=== PATIENT | female | born 1985 | race African-American/Black ===

== ENCOUNTER → 2020-09-09 10:19 | Outpatient (CLI) | payer BC, SELFPAY ==
--- NOTE | ~2020-09-09 | US_ITS ---
EXAMINATION: US OB >= 14 weeks Fetus DATE: 09/09/2020 10:57 INDICATION: Second trimester anatomic survey TECHNIQUE: Real-time ultrasound of the pelvis was performed. COMPARISON: None. FINDINGS: There is a single living fetus in breech presentation. The placenta is anterior. heart rate is 152 beats per minute (bpm). cardiac activity and movement are noted. The amniotic fluid index is subjectively normal. The following anatomy was identified as normal: 4 chamber heart 3 vessel cord cord insertion kidneys urinary bladder stomach spine diaphragm ventricles cisterna magna cerebellum The following biometric data were obtained: Biparietal diameter (BPD): 5.4 cm; head circumference (HC): 20.7 cm; abdominal circumference (AC): 17 .8 cm; femur length (FL): 3.6 cm. These measurements are concordant. Estimated weight is 491 g +/- 73 g, which correlates with the 51st percentile when 01/12/2021 is used as estimated date of delivery. As single measurements, these parameters are each equal to the following estimated gestational ages w ith ranges of +/- 2 standard deviations: BPD: 22 weeks 5 days ( 21 weeks 0 days - 24 weeks 3 days). HC: 22 weeks 6 days ( 21 weeks 2 days - 24 weeks 2 days). AC: 22 weeks 5 days ( 20 weeks 4 days - 24 weeks 5 days). FL: 21 weeks 4 days ( 19 weeks 6 days - 23 weeks 3 days). estimated gestational age based solely on measurements from this exam is 22 weeks 3 days +/- 1 weeks 4 days. IMPRESSION: 1. Single living fetus in breech presentation. 2. Estimated weight is 491 g +/- 73 g, which correlates with the 51st percentile when 01/12/2021 is used as estimated date of delivery. Reviewed, dictated and finalized at location A. IMPRESSION: 1. Single living fetus in breech presentation. 2. Estimated weight is 491 g +/- 73 g, which correlates with the 51st per centile when 01/12/2021 is used as estimated date of delivery.
== END ==
PROVIDERS: Visit Provider Obstetrics & Gynecology
DX: Z36.9 Encounter for antenatal screening, unspecified (principal)
CPT/HCPCS: 76805

== ENCOUNTER 2021-01-12 04:32 | Inpatient (IN) | payer BC, SELFPAY ==
[2021-01-12] VITALS (19 sets, daily range): BP systolic 96–121; BP diastolic 53–86; PULSE 66–108; RESP 16–18; TEMP 36.4–37.1; O2SAT 100
--- NOTE | 2021-01-12 05:16 | LDADM ---
This patient, Terrence Bedoya, was admitted to Labor/Delivery/Recovery 103 on 01/12/21 at 04:32. Plans for labor, pain management and were discussed with patient. Patient/family oriented to hospital policies and general routines including ID bracelet, bed and alarms, visiting hours, pain management, procedures, bathroom and other care routines, personal items, smoking policy, room service/diet and guest tray routines, infant security routines, and visiting hours. Patient/Family are encouraged to report perceived risks to care and to ask questions if they do not understand what they are told or what they should do. See [facility] for further documentation.
--- NOTE | 2021-01-12 05:35 | PC.NURSE ---
PT REFUSES BLOOD PRODUCTS BUT IS NOT LIZZIE RUIZ, PT HAS ALSO HAD 4 PRIOR VAGINAL DELIVERIES. THESE MAKE PT HIGH HEMORRHAGE RISK
[2021-01-12 06:02] LABS: Basophils Percent Auto 0.4 % (0.2-1.2); Eosinophils Absolute Auto 0.1 K/mm3 (0-0.3); Eosinophils Percent Auto 0.9 % (0-4.4); Hematocrit 31.4 % (37.0-47.0); Hemoglobin 9.6 g/dL (12.0-15.0); Immature Granulocyte Absolute 0.11 K/mm3 (0.00-0.031); Immature Granulocyte Percent A 1.4 % (0-0.5); Lymphocytes Absolute Auto 2.44 K/mm3 (0.9-3.2); Lymphocytes Percent Auto 31.9 % (18.3-44.2); Mean Corpuscular HGB Conc 30.6 g/dl (32-36); Mean Corpuscular Volume 88.5 fl (80-100); Mean Platelet Volume 12.9 fl (7.4-10.4); Monocytes Absolute Auto 0.6 K/mm3 (0.1-0.6); Monocytes Percent Auto 8.2 % (2.6-8.5); Neutrophils Absolute Auto 4.4 K/mm3 (1.3-6.7); Neutrophils Percent Auto 57.2 % (45.5-73.1); Platelet Count Result 153 k/mm3 (150-375); Red Blood Count 3.55 M/mm3 (4.2-5.4); Red Cell Distribution Width 17.6 % (11.5-14.5); White Blood Count 7.7 K/mm3 (4.5-10.0)
--- NOTE | 2021-01-12 07:14 | WPDOBADMIT ---
Obstetrics - Admit Note Admission Note: record reviewed. No pertinent additions to the history and/or any subsequent changes in the physical findings that are not consistent with the expected course of the were found. Additions to the history and/or subsequent changes in the physical findings follow. None.Here in labor. Now /-1 AROM with clear fluid. FHTs reactive.
[2021-01-12] MEDS: OXYTOCIN 30 UNITS/NS 500 ML 30 UNITS/500 ML BAG 999 UNITS IV CONT (07:36)
--- NOTE | 2021-01-12 07:42 | PM.OBPRVD ---
OB - Delivery Note Procedure Delivery date: 01/12/21 Procedure: Intrapartal events: None Induction method: none Delivery monitor: external FHT and external uterine Route of delivery: Episiotomy description: None Specimen: No Quantitative Blood Loss (ml): 25 Anesthesia type: None Disposition: floor [place] Baby Date of : 01/12/21 Weeks of gestation at delivery: 39 Infant gender: Male presentation: vertex position: Right Occiput Anterior Placenta delivery description: Spontaneous cord vessel description: 3 Vessels score one minute: 9 score five minutes: 9
--- NOTE | 2021-01-12 07:43 | P.DS_ITS ---
DS: Admitting Diagnosis Discharge Date 01/14/21 Admitting Diagnosis labor at 39 4/7 DS: Discharge Diagnosis Discharge Diagnosis (1) (normal spontaneous vaginal delivery): Code(s): O80 - Encounter for full-term uncomplicated delivery Status: Acute OB - DS: Summary OB Procedures : Ultrasound OB Procedures Intrapartum: Spontaneous Vag Delivery OB Procedures: : None Peripartum Data Delivery Method: Natural Vaginal Laceration Description: None complications: none Status at Discharge Functional status at discharge: independent ambulation Overall status at discharge: patient is progressing back to baseline Time Spent with Patient Time attestation: Total time spent providing and/or coordinating discharge services: DS: Data Data Completed and Pending Labs on day of discharge: Labs from last 24 hours 01/12/21 01/12/21 05:04 05:04 WBC 7.7 RBC 3.55 L Hgb 9.6 L Hct 31.4 L MCV 88.5 MCH 27.0 MCHC 30.6 L RDW 17.6 H Plt Count 153 MPV 12.9 H Immature Gran % (Auto) 1.4 H Neut % (Auto) 57.2 Lymph % (Auto) 31.9 [place] % (Auto) 8.2 Eos % (Auto) 0.9 Baso % (Auto) 0.4 Lymph # (Auto) 2.44 [place] # (Auto) 0.6 Eos # (Auto) 0.1 Baso # (Auto) 0.0 Abs Immat Gran (auto) 0.11 H Absolute Neuts (auto) 4.4 Absolute Nucleated RBC 0.0 Nucleated RBC % 0.0 RPR Pending Discharge Plan Discharge Attending physician on discharge: Ailyn Merchant Discharging Clinician: Ailyn Merchant Anticipated Discharge Date/Time: 01/14/21 07:44 Patient Disposition: Home, Self-Care Activity: may shower and pelvic rest Diet: regular Patient Instructions: Antibiotic Form Stand Alone Forms: General Discharge Information Follow-up/Referrals: Anjum Langley MD [Physician] - 6 Weeks Discharge Medications: New polysaccharide iron complex 150 mg iron Capsule 150 mg PO BIDWM Qty: 60 RF: 1 KPN Tablet 1 tablet PO DAILY Qty: 30 RF: 12 No Action No Home Medications RF: 0 Date of admission: 01/12/21 04:32 Primary Care Provider: Pipo Coley Admitting Provider: Anjum Langley Attending physician on admission: Anjum Langley Condition: Stable Health Concerns: Declines control Reviewed recommendation to wait at least 9 months for another
[2021-01-12 08:01] LABS: Rapid Plasma Reagin Non-Reactive (NonReactive)
[2021-01-12] MEDS: OXYTOCIN 30 UNITS/NS 500 ML 30 UNITS/500 ML BAG 125 UNITS IV CONT (08:02)
[2021-01-12] MEDS: IBUPROFEN 600 MG TABLET PO ×3 (08:41→22:30)
--- NOTE | 2021-01-12 12:00 | PC.NURSE ---
Consult with pt., mother reports infant eagerly latched last feeding without difficulties or discomfort. Mother denies need for assist with latching. Requested mother call out for observation of feeding per policy.
[2021-01-12] MEDS: POLYSACCHARIDE IRON COMPLEX 150 MG CAPSULE PO (17:00)
[2021-01-12] MEDS: DOCUSATE SODIUM 100 MG CAPSULE PO (17:00)
[2021-01-13 04:15] VITALS: BP 105/67; PULSE 79; RESP 16; TEMP 36.9; O2SAT 100
[2021-01-13 05:23] LABS: Hematocrit 30.1 % (37.0-47.0); Hemoglobin 9.3 g/dL (12.0-15.0)
--- NOTE | 2021-01-13 07:31 | PM.OBPNVD ---
OB - PN: Subj Subjective Date/time seen: 01/13/21 07:31 Patient comments: no complaints and pain well controlled baby status: doing well OB - PN: Obj Data Labs CBC & Chem 7: 01/13/21 04:12 Labs: Laboratory Results - last 24 hr 01/12/21 01/12/21 01/13/21 05:04 05:04 04:12 Hgb 9.3 L Hct 30.1 L RPR Non-reactive Blood Type B Positive Antibody Screen Negative OB - PN A/P Plan day: 1 Plan: routine care Time Spent With Patient Time: Total time spent is greater than 50% in coordination of care (as documented) at patient's floor/unit and/or counseling patient: Exam : Bimanual exam- vagina & uterus: other (Uterus firm, nt @U)
[2021-01-13] MEDS: IBUPROFEN 600 MG TABLET PO ×2 (08:31→17:31)
[2021-01-13] MEDS: POLYSACCHARIDE IRON COMPLEX 150 MG CAPSULE PO ×2 (08:32→17:30)
[2021-01-13] MEDS: DOCUSATE SODIUM 100 MG CAPSULE PO ×2 (08:32→17:30)
[2021-01-13] MEDS: MULTIVIT/MIN/PREN/FOL AC/IRON TABLET 1 TAB PO (08:32)
[2021-01-13 08:45] VITALS: BP 104/65; PULSE 71; RESP 18; TEMP 36.8; O2SAT 100
[2021-01-13 20:40] VITALS: BP 111/62; PULSE 66; RESP 18; TEMP 36.7; O2SAT 100
--- NOTE | 2021-01-14 07:16 | PM.OBPNVD ---
OB - PN: Subj Subjective Date/time seen: 01/14/21 07:16 Patient comments: no complaints and pain well controlled baby status: doing well OB - PN: Obj Data Labs CBC & Chem 7: 01/13/21 04:12 OB - PN A/P Plan day: 2 Plan: routine care, discharge home and follow up 6 weeks Time Spent With Patient Time: Total time spent is greater than 50% in coordination of care (as documented) at patient's floor/unit and/or counseling patient: Exam : Bimanual exam- vagina & uterus: other (Uterus firm, nt @U)
[2021-01-14] MEDS: MULTIVIT/MIN/PREN/FOL AC/IRON TABLET 1 TAB PO (08:35)
[2021-01-14] MEDS: DOCUSATE SODIUM 100 MG CAPSULE PO (08:35)
[2021-01-14] MEDS: POLYSACCHARIDE IRON COMPLEX 150 MG CAPSULE PO (08:35)
[2021-01-14 09:00] VITALS: BP 108/63; PULSE 77; RESP 16; TEMP 37.1; O2SAT 100
--- NOTE | 2021-01-14 09:30 | PC.NURSE ---
Mother is able to independently latch infant with appropriate positioning/alignment. She denies any nipple discomfort, is feeding as required and waking to feed if needed. has had at least 8 effective feedings in the past 24 hours, and is currently meeting outcomes for weight, output, jaundice and feeding frequencies. Infant is feeding freq., reviewed this is normal for the first few days and should resolve once her milk is in. Mother states she feels confident to continue effective at home. Reviewed transition to breast milk, signs of adequate intake, and engorgement/relief. Instructed to call ICP if intake/output less than required. Reviewed regular medications mother is taking. Information provided per Caterina. Reviewed community resources on the [facility] and in the Mom/Baby guide. Information on outpatient services provided. Mother has no further questions at this time.
[2021-01-15 10:28] VITALS: BP 98/56; PULSE 79; RESP 16; TEMP 37.3; O2SAT 100
== END 2021-01-14 12:18 | disposition home or self-care (01) | DRG 807 ==
LOC: ANHLDR 01-17 10:46 → ANHOB2 01-17 10:46
PROVIDERS: Admitting Provider Obstetrics & Gynecology Gynecology; PCP Family Medicine; Visit Provider Obstetrics & Gynecology Gynecology
DX: O80 Encounter for full-term uncomplicated delivery (principal); Z37.0 Single live birth; Z3A.39 39 weeks gestation of pregnancy
CPT/HCPCS: 36415; 85014; 85018; 85025; 86592; 86850; 86900; 86901; A9270; J2590